=== PATIENT | male | born 1960 | race Caucasian/White ===

== ENCOUNTER 2019-06-06 22:24 | Emergency (ER) | payer MEDICAID ==
[~2019-06-06] VITALS: Ht 172.7 cm; Wt 71.7 kg
--- NOTE | 2019-06-06 22:32 | NUR ---
PT RECEIVED AMBULATORY WITH STABLE GAIT FROM HOME C/O EPIGASTRIC PAIN, CHEST PAIN, LEFT SHOULDER PAIN AND JAW PAIN STATES SYMPTOMS STARTED 30MINS AGO, AND THEN CHANGED TO 15MINS AGO. DENIES NVD, FEVERS NOR CHILLS. MD AT BEDSIDE FOR HX AND PHYSICAL. SIDERAILS X2 UP. BED SET TO LOWEST POSITION. MONITORED ACCORDINGLY
[2019-06-06] MEDS ORDERED: CEPH-570 PO (22:38)
[2019-06-06] MEDS ORDERED: ASPI-605 PO (22:38)
[2019-06-06] MEDS ORDERED: HYDROCODONE/APAP 5-325MG TABLET PO ONE (22:45)
[2019-06-06] MEDS ORDERED: HYDROCODONE/APAP 5-325MG TABLET ONE (22:47)
[2019-06-06 23:03] LABS: BASOPHILS # (AUTO) 0.1 K/uL (0.0-8.0); BASOPHILS % (AUTO) 1.2 % (0.0-2.0); EOSINOPHILS # (AUTO) 0.3 K/uL (0.0-0.7); EOSINOPHILS % (AUTO) 3.4 % (0.0-7.0); HEMATOCRIT 39.8 % (36.7-47.1); HEMOGLOBIN 14.2 g/dL (12.5-16.3); LYMPHOCYTES # (AUTO) 2.4 K/uL (20.0-40.0); LYMPHOCYTES % (AUTO) 28.4 % (20.5-51.5); MEAN CORPUSCULAR HEMOGLOBIN 33.1 uug (23.8-33.4); MEAN CORPUSCULAR HGB CONC 36 g/dL (32.5-36.3); MONOCYTES # (AUTO) 0.7 K/uL (2.0-10.0); MONOCYTES % (AUTO) 8.9 % (0.0-11.0); NEUTROPHILS # (AUTO) 4.9 K/uL (1.8-8.9); NEUTROPHILS % (AUTO) 58.1 % (38.5-71.5); RED BLOOD CELL COUNT(AUTO) 4.28 MIL/uL (4.06-5.63); WHITE BLOOD COUNT (AUTO) 8.5 K/uL (3.6-10.2)
[2019-06-06 23:06] LABS: BILIRUBIN,DIRECT 0.2 mg/dL (0.0-0.2); BILIRUBIN,TOTAL 1.3 mg/dL (0.2-1.0); CREATININE 1.2 mg/dL (0.6-1.3); POTASSIUM 4.6 mmol/L (3.5-5.1); TOTAL PROTEIN, SERUM 7.5 g/dL (6.4-8.2)
--- NOTE | 2019-06-06 23:31 | NUR ---
Patient discharged to home in stable conditon. Written and verbal after care instructions given. Patient verbalizes understanding of instructions. AMBULATORY WITH STABLE GAIT. ALL BELONGINGS WITH PT. Addendum: 06/06/19 at 2335 by NEW HOMELESS DISCHARGE FORM SIGNED. PT STATES HE HAS A PLACE TO STAY TONIGHT. [facility] GIVEN PT WILL ARRANGE HIS OWN TRANSPORTATION
[2019-06-06 23:37] VITALS: BP 132/94
[2019-06-06 23:46] LABS: PLATELET COUNT (AUTO) 181 K/uL (152-348)
== END 2019-06-06 23:38 | disposition home or self-care (01) ==
LOC: ER 22:27
DX: R07.89 Other chest pain (principal); K08.89 Other specified disorders of teeth and supporting structures; I25.10 Atherosclerotic heart disease of native coronary artery without angina pectoris; I10 Essential (primary) hypertension; Z88.8 Allergy status to other drugs, medicaments and biological substances; Z79.82 Long term (current) use of aspirin; Z79.899 Other long term (current) drug therapy
CPT/HCPCS: 36415; 70030-TC; 71045; 85025; 93005; A4663

== ENCOUNTER 2020-08-02 18:51 | Emergency (ER) | payer MEDICAID, OTHER ==
[~2020-08-02] VITALS: Ht 172.7 cm; Wt 74.8 kg
[~2020-08-02 18:51] MED LIST: ASPI-605 PO; CEPH-570 PO
--- NOTE | 2020-08-02 18:58 | NUR ---
AT BEDSIDE FOR ASSESSMENT
[2020-08-02] MEDS ORDERED: OXYCODONE/APAP 5-325 MG TABLET PO ONE (19:45)
[2020-08-02] MEDS ORDERED: OXYCODONE/APAP 5-325 MG TABLET ONE (19:45)
--- NOTE | 2020-08-02 20:13 | NUR ---
Patient given written and verbal discharge instructions. Patient verbalizes understanding of instructions. Patient is ambulatory with steady gait. Refuses offer of [facility] placement. Patient given list of available shelters in surrounding area. no signs of acute distress, took all belongings, homeless waiver signed
[2020-08-02 20:15] VITALS: BP 125/86
== END 2020-08-02 20:16 | disposition home or self-care (01) ==
LOC: ER 18:51
DX: K08.89 Other specified disorders of teeth and supporting structures (principal); R07.9 Chest pain, unspecified; Z76.0 Encounter for issue of repeat prescription; Z59.0 Homelessness; Z79.82 Long term (current) use of aspirin; I25.10 Atherosclerotic heart disease of native coronary artery without angina pectoris; I10 Essential (primary) hypertension
CPT/HCPCS: 93005; A4663

== ENCOUNTER 2020-08-03 05:15 | Emergency (ER) | payer OTHER ==
[~2020-08-03] VITALS: Ht 172.7 cm; Wt 74.8 kg
--- NOTE | 2020-08-03 05:35 | NUR ---
at bedside for assessment
[2020-08-03] MEDS ORDERED: ONDANSETRON 4 MG/2 ML VIAL ONE (05:44)
[2020-08-03] MEDS ORDERED: HYDROMORPHONE 2 MG/1 ML DISP.SYRIN ONE (05:44)
[2020-08-03] MEDS ORDERED: ONDANSETRON 4 MG/2 ML VIAL IM ONE (05:45)
[2020-08-03] MEDS ORDERED: HYDROMORPHONE 1 MG/1 ML DISP.SYRIN IM ONE (05:45)
--- NOTE | 2020-08-03 06:00 | NUR ---
Patient given written and verbal discharge instructions. Noted ambulating with steady gait. took all belongings. Patient verbalizes understanding of instructions. Patient is ambulatory with steady gait. Refuses offer of [facility] placement. Patient given list of available shelters in surrounding area.
[2020-08-03 06:02] VITALS: BP 119/76
== END 2020-08-03 06:00 | disposition home or self-care (01) ==
LOC: ER 05:19
DX: G43.909 Migraine, unspecified, not intractable, without status migrainosus (principal); Z59.0 Homelessness; I25.10 Atherosclerotic heart disease of native coronary artery without angina pectoris; I10 Essential (primary) hypertension; F31.9 Bipolar disorder, unspecified; Z79.82 Long term (current) use of aspirin
CPT/HCPCS: 96372 ×2; 99284; J1170; J2405; A4663